=== PATIENT | female | born 1955 | race Caucasian/White ===

== ENCOUNTER 2020-06-04 12:20 | Emergency (ER) | payer OTHER ==
[~2020-06-04] VITALS: Ht 157.5 cm; Wt 47.2 kg
--- OUTSIDE RECORDS SUMMARY | 2020-06-04 12:22 | XMS ---
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 Venkat has no Care Guidelines for this patient. [place] VISIT COUNT (12 MO.) 2 [facility] [place] [address] - [place] 1 [facility] TOTAL 9 NOTE: Visits indicate total known visits. ED/UCC VISIT TRACKING (12 MO.) [facility]2020 [facility] [place] [facility] COMPLAINT: - CHEST PAIN 06/01/2020 12:56 [facility] Jevon Sanz [place] TYPE: Emergency DIAGNOSES: [address]. [place] [address]. 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 Chest pain, unspecified 06/01/2020 06:52 [facility] Jevon Sanz [place] TYPE: Emergency DIAGNOSES: 27530. CP HYPERGLYCEMIA 26686. Chest pain, unspecified 75161. Hyperglycemia, unspecified [facility]2020 [facility] DIAGNOSES: - Chest Pain 05/30/2020 20:22 [facility] [place] TYPE: Emergency DIAGNOSES: - Malingerer [conscious simulation] - Other psychoactive substance abuse, uncomplicated - Other psychoactive substance abuse, uncomplicated - Hyperglycemia, unspecified - Hyperglycemia, unspecified - Chest pain, unspecified - Chest pain, unspecified - chest pain [facility]2020 [facility] DIAGNOSES: - Fall - Unspecified fall, initial encounter - Other 05/29/2020 16:44 [facility] [place] TYPE: Emergency DIAGNOSES: - Chest pain, unspecified - chest pain 05/25/2020 16:[facility] [place] [facility] DIAGNOSES: - Other stimulant abuse, uncomplicated - Anxiety - Anxiety disorder, unspecified 05/25/2020 07[facility] [place] [facility] DIAGNOSES: - Other stimulant abuse, uncomplicated - Chest pain, unspecified - Anxiety INPATIENT VISIT TRACKING (12 MO.) 06/01/2020 12:56 [facility] Jevon Sanz [place] TYPE: Inpatient DIAGNOSES: 35565. watermelon harvesting supervisor (current) use of insulin 51436. Chest pain, unspecified 86415. Type 2 diabetes mellitus with other circulatory complications [email or web address]
--- NOTE | 2020-06-04 22:34 | EKG ---
[facility] [address] [facility] [facility] [place] [address] Signed Normal sinus rhythm Incomplete left bundle branch block T wave abnormality, consider inferior ischemia Prolonged QT Abnormal ECG No previous ECGs available Confirmed by ESPERANZA FREY MD ([id number]) on 06/04/2020 10:33:47 PM Electronically Signed By: ESPERANZA FREY MD 06/04/20 [id number] PATIENT NAME: HOANG MAIER Electrocardiogram DATE OF : 57 PHYSICIAN: ESPERANZA FREY MD REPORT #: [id number] REPORT IS CONFIDENTIAL AND NOT TO BE RELEASED WITHOUT AUTHORIZATION
== END 2020-06-04 13:07 | disposition left against medical advice (07) ==
LOC: ED 12:20
DX: R07.9 Chest pain, unspecified (principal); Z76.5 Malingerer [conscious simulation]; F17.200 Nicotine dependence, unspecified, uncomplicated
CPT/HCPCS: 80053; 83735; 84484; 85025; 93005; 93010; 99285-25